=== PATIENT | male | born 1950 | race Caucasian/White ===

== ENCOUNTER → 2021-04-02 09:21 | Outpatient (CLI) | payer OTHER, SELFPAY ==
[2021-04-02 10:34] LABS: COVID19 -Nasal RAPID Negative (Negative)
== END ==
PROVIDERS: Visit Provider Nurse Practitioner Family
DX: Z20.822 Contact with and (suspected) exposure to COVID-19 (principal); Z01.812 Encounter for preprocedural laboratory examination
CPT/HCPCS: 87635; C9803

== ENCOUNTER 2021-04-03 11:27 | Day surgery (SDC) | payer OTHER, SELFPAY ==
--- NOTE | 2021-04-03 | PATH_ITS ---
[facility] Accession Number: [id number] . 01 Material submitted: . sigmoid colon - SIGMOID POLYP . 02 Diagnosis: Sigmoid Colon, Polyp, Biopsy: Tubular adenoma. MRV 04/05/2021 1157 Local . 02 Electronically signed: . Salima Crespo MD, Pathologist NPI- [id number] . 01 Gross description: . SIGMOID POLYP: Received in formalin is 1 fragment(s) of le, soft tissue measuring 0.6 x 0.4 x 0.3 cm submitted entirely in 1 cassette(s) /[place] 04/04/2021 0534 Local . 02 Pathologist provided ICD-10: D12.5 . 02 CPT . 820153 Performed at: 01 [facility] [address] [id number] MD Karson Mohr MD Phone: [phone] Performed at: 02 [facility] [address] [place], [place] [id number] MD Salima Crespo MD Phone: [phone]
--- NOTE | 2021-04-03 12:03 | PM.HP.1 ---
History of Present Illness History of Present Illness Date Patient Seen: 04/03/21 Time Patient Seen: 12:03 Chief complaint: SDC Narrative: Here for colonoscopy. No family history of colon cancer. Asymptomatic. Last exam was approximately 10 years ago. Patient History Medical History Hyperlipidemia Meds Home Medications and Allergies Home Medications Medication Instructions Recorded Confirmed Type atorvastatin 40 mg tablet 40 mg PO DAILY 04/03/21 04/03/21 History tamsulosin 0.4 mg capsule 0.4 mg PO DAILY 04/03/21 04/03/21 History Allergies Allergy/AdvReac Type Severity Reaction Status Date / Time No Known Drug Allergies Allergy Verified 04/03/21 12:01 Review of Systems Review of Systems ROS: Yes All systems reviewed with the patient and are negative except as otherwise documented Exam Const General: cooperative and comfortable Orientation: alert HENMT Head: normocephalic Ears: external ears normal Nose: external nose normal Face and sinus: normal facial exam Mouth: oral mucosae normal Eyes General: appearance normal, both eyes and all related structures Neck Neck: normal visual inspection Chest Chest: normal inspection of the chest Resp Effort & Inspection: normal respiratory effort Auscultation: clear to auscultation bilaterally Cardio Rate: regular rate Rhythm: regular rhythm Heart Sounds: no murmurs GI Inspection: normal to inspection Palpation: soft and No tender Auscultation: normal bowel sounds Skin General: no rashes or lesions noted and No jaundice Neuro General: patient alert and moves all extremities Cognition: normal cognition Speech: speech normal Extrem General: no pedal edema Psych Appearance: grossly normal Assessment & Plan Assessment & Plan narrative: 70-year-old male indicated for colon cancer screening. Average risk. Colonoscopy is planned for today. Time Spent With Patient Critical Care time: I spent a total of [] minutes of critical care time on this patient's care today; this time is exclusive of procedural time.
[2021-04-03 12:05] VITALS: BP 134/74; PULSE 69; RESP 20; TEMP 36.8; O2SAT 99; BMI 29.0
--- NOTE | 2021-04-03 12:24 | PM.PREOP ---
Pre-operative Note COVID-19 COVID-19 status: Negative Result date/Date tested (Pos, Neg/Pending): 04/02/21 Interval Note History & Physical reviewed/Exam performed by Physician: Yes Changes to H&P: No H&P completed within 30 days and has changed as indicated here:: Today ASA Class (for procedural sedation): II
[2021-04-03] MEDS: SODIUM CHLORIDE 0.9% 1,000 ML 100 ML IV (12:41)
--- NOTE | 2021-04-03 13:32 | P.OP.COLON_ITS ---
Operative Date/Time/Diagnoses Date of procedure: 04/03/21 Time of procedure: 13:32 Pre-op diagnosis: Indicated for colon cancer screening Post-op diagnosis: same Procedure & Clinicians Study performed: Colonoscopy with hot snare polypectomy Same procedure as scheduled: Yes Indications: Indicated for colon cancer screening Surgeon: Jamie Greenfield Procedure Notes SCOAP/Timeout: Done Procedure in detail: After the risks and benefits were explained, written and verbal informed consent was obtained. The patient was brought into the procedure room and placed into the left lateral decubitus position. Please see nurse sales review clerk note for sedation details. Digital rectal examination was accomplished. The scope was introduced into the patient and advanced under direct visualization to the cecum as identified by the appendiceal orifice and ileocecal valve. The scope was slowly withdrawn to carefully examine the mucosa for any defects or lesions. Comprehensive imaging was accomplished throughout the rectum including the dentate line. The colon was decompressed, the scope was then removed from the patient who tolerated the procedure well. Bowel prep adequate Adult colonoscope Scope withdrawal time: 12 minutes Sedation minutes: 22 Complications: none Impression: Patient had a 8 mm semi pedunculated polyp in the sigmoid colon removed with hot snare. Otherwise no significant mucosal anomalies appreciated throughout the remainder of the exam. Patient had grade 2 internal nonbleeding nonthrombosed hemorrhoids. Endoscopic diagnosis 1. Colon polyp 2. Grade 1-2 internal nonbleeding nonthrombosed hemorrhoids. Post-procedure Recommendations: Colonoscopy in 5 years Plan for aftercare: 1. Await histopathology 2. Repeat colonoscopy will likely be suggested for 5 years time. Disposition: PACU
[2021-04-03 13:38] VITALS: BP 101/64; PULSE 55; RESP 16; TEMP 36; O2SAT 98
[2021-04-03 13:41] VITALS: BP 110/71; PULSE 64; RESP 19; TEMP 36.1; O2SAT 97
[2021-04-03 13:47] VITALS: BP 106/74; PULSE 56; RESP 13; TEMP 36.4; O2SAT 98
[2021-04-03 14:05] VITALS: BP 107/71; PULSE 56; RESP 14; TEMP 36.1; O2SAT 97
== END 2021-04-03 14:06 | disposition home or self-care (01) ==
PROVIDERS: Referring Provider Internal Medicine Gastroenterology; Visit Provider Internal Medicine Gastroenterology
PROC: 0DJD8ZZ Inspection of Lower Intestinal Tract, Via Natural or Artificial Opening Endoscopic (ICD-10-PCS; CPT 45378; principal; 2021-04-03 12:30)
DX: Z12.11 Encounter for screening for malignant neoplasm of colon (principal); K64.1 Second degree hemorrhoids; D12.5 Benign neoplasm of sigmoid colon
CPT/HCPCS: 45385; J2704